=== PATIENT | female | born 1970 | race Asian ===

== ENCOUNTER 2022-09-27 11:52 | Emergency (ER) | payer OTHER ==
[~2022-09-27] VITALS: Ht 154.9 cm; Wt 80.3 kg
[~2022-09-27 11:52] MED LIST: ATEN-167 PO; HCT25 PO
[2022-09-27 12:23] VITALS: BP_SYST 199
[2022-09-27 13:01] LABS: BASOPHILS # (AUTO) 0.1 K/uL (0.0-0.2); BASOPHILS % (AUTO) 1.2 % (0.0-2.0); EOSINOPHILS # (AUTO) 0.4 K/uL (0.0-0.4); EOSINOPHILS % (AUTO) 5.2 % (0.0-4.0); HEMATOCRIT 40.6 % (36-48); HEMOGLOBIN 13.3 g/dL (12.0-16.0); LYMPHOCYTES # (AUTO) 3.5 K/uL (1.0-5.5); LYMPHOCYTES % (AUTO) 50.1 % (20.5-51.5); MEAN CORPUSCULAR HEMOGLOBIN 28 pg (27-31); MEAN CORPUSCULAR HGB CONC 33 % (32-36); MEAN CORPUSCULAR VOLUME 86 fL (79.0-98.0); MONOCYTES # (AUTO) 0.6 K/uL (0.0-1.0); MONOCYTES % (AUTO) 9.1 % (1.7-9.3); NEUTROPHILS # (AUTO) 2.4 K/uL (1.8-7.7); NEUTROPHILS % (AUTO) 34.4 % (40.0-70.0); PLATELET COUNT (AUTO) 236 K/uL (130-430); RED BLOOD CELL COUNT(AUTO) 4.76 MIL/uL (4.2-6.2); RED CELL DISTRIBUTION WIDTH 12.9 % (9.0-15.0); WHITE BLOOD COUNT (AUTO) 6.9 K/uL (4.8-10.8)
[2022-09-27 13:13] LABS: CREATININE 0.92 mg/dL (0.55-1.30)
[2022-09-27 13:18] LABS: ALBUMIN 3.5 g/dL (3.4-4.8); C-REACTIVE PROTEIN QUANT 1.3 mg/dL (0-0.5); TOTAL BILIRUBIN 0.3 mg/dL (0.0-1.0)
[2022-09-27 13:39] LABS: URIC ACID 6.4 mg/dL (2.4-7.0)
[2022-09-27 13:47] LABS: ERYTHROCYTE SEDIMENTATION RATE 23 MM/HR (0-20)
[2022-09-27] MEDS ORDERED: KETOROLAC TROMETHAMINE 30 MG VIAL IM ONE (14:45)
[2022-09-27] MEDS ORDERED: DICL75TA5 PO (15:32)
[2022-09-27 16:52] VITALS: BP_SYST 148
== END 2022-09-27 16:52 | disposition home or self-care (01) ==
LOC: SED 11:52
DX: M10.9 Gout, unspecified (principal); I10 Essential (primary) hypertension; Z79.899 Other long term (current) drug therapy
CPT/HCPCS: 99284; 80053; 84550; 85025; 85651; 86140; 87040; 36415; 73630; 96372; 83605; J1885